=== PATIENT | male | born 1970 | race Caucasian/White ===

== ENCOUNTER 2021-04-05 12:28 | Outpatient (CLI) | payer BC, SELFPAY ==
--- NOTE | ~2021-04-05 | XR_ITS ---
EXAMINATION: XR barium swallow modified DATE: 04/05/2021 13:34 INDICATION: Dysphagia, unspecified TECHNIQUE: Modified barium esophagram was performed by myself to administered fluoroscopy, in conjun ction with speech pathologist who administered barium in varying consistencies as per speech patholog ist documentation. This was recorded on tape. A single fluoroscopic spot image was recorded. The DAP for this procedure was 1.5 Gycm2. Fluoroscopy exposure time was 1.297 minutes. FINDINGS: Oral stage: Adequate function. Pharyngeal phase: Adequate function. Laryngeal penetration: None. Aspiration: None. Laryngeal sensitivity: Present. IMPRESSION: Normal modified esophagram. Please refer to speech pathologist findings and specific feed ing recommendations. Reviewed, dictated and finalized at location A. IMPRESSION: Normal modified esophagram. Please refer to speech pathologist find ings and specific feeding recommendations.
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
== END 2021-04-05 12:29 | disposition home or self-care (01) ==
PROVIDERS: Visit Provider Internal Medicine Gastroenterology
DX: R13.10 Dysphagia, unspecified (principal)
CPT/HCPCS: 92611

== ENCOUNTER 2021-05-24 01:05 | Day surgery (SDC) | payer BC, SELFPAY ==
[2021-05-24] MEDS: LACTATED RINGERS 1,000 ML 150 ML IV CONT (08:55)
[2021-05-24 08:56] VITALS: BP 143/94; PULSE 70; RESP 18; TEMP 36.3; O2SAT 100; BMI 30.5
--- NOTE | 2021-05-24 09:11 | P.PNAN_ITS ---
Anes - Initial Pre Proc Eval Procedure: Operation Date: 05/24/21 09:30 Proposed Procedures p Esophagogastroduodenoscopy - Govind Vivar MD Date/Time: 05/24/21 09:11 Surgeon: Govind Vivar MD Pre Op Diagnosis: dysphagia Patient Data Age: 51 Gender: M Height: 1.91 m Weight: 110.9 kg Last Vital Signs Temp 36.3 C L 05/24/21 08:56 Pulse 70 05/24/21 08:56 Resp 18 05/24/21 08:56 BP 143/94 H 05/24/21 08:56 Pulse Ox 100 05/24/21 08:56 Allergies Allergy/AdvReac Type Severity Reaction Status Date / Time No Known Allergies Allergy Unknown Unverified 05/24/21 08:45 Home Medications Medication Instructions Recorded Confirmed Type fexofenadine 60 mg tablet 60 mg PO Q12H 03/15/21 05/04/21 History omeprazole 20 mg PO DAILY 05/04/21 05/04/21 History Patient hx anesthesia problems: none Family hx anesthesia problems: none [facility] Past Medical History Medical History (Updated 05/24/21 @ 09:19 by Gonzalez Giles MD) GERD (gastroesophageal reflux disease) Obesity Surgical History Surgical History (Updated 05/24/21 @ 09:19 by Gonzalez Giles MD) H/O wrist surgery Family History Family History Other Diabetes mellitus Social History Social History Smoking status: Never smoker Alcohol intake: current Drinks per week: 4 Substance use: never Living arrangements: with family Gender identity (if verbalized by the patient): Male Spiritual care concerns: No Anes - Eval Final PreProcedure Day of Procedure 05/24/21 09:11 Patient weight: obese Heart: regular rate and rhythm Lungs: clear to auscultation Airway: Mallampati scale class II Neurological: alert and oriented Last oral intake: >/= 8 hours ASA classification: II Emergent: no Anesthetic plan: proceed Anesthesia type and monitoring: general GIVS and standard monitoring Informed Consent: The patient's anesthetic plan and its attendant risks and benefits were discussed with the patient/family/POA. Questions were solicited and answers provided to the satisfaction of the patient/family/POA.
--- NOTE | 2021-05-24 09:19 | WPDHPUPDATE1 ---
History and Physical Update Update Date/Time: 05/24/21 09:19 History and Physical has been reviewed, including an updated exam of the patient. There are NO changes in the patient's condition. Risks, benefits, and alternatives have been discussed and questions answered. Patient agrees to proceed with procedure.
[2021-05-24] MEDS: BENZOCAINE (*SP) 60 ML SPRAY CAN (HURRICAINE) 1 SPRAY MUCOUS MEM (09:31)
[2021-05-24 09:43] VITALS: BP 127/82; PULSE 86; RESP 22; O2SAT 96
[2021-05-24 09:53] VITALS: BP 143/94; PULSE 80; RESP 18; O2SAT 98
[2021-05-24 10:03] VITALS: BP 138/92; PULSE 72; RESP 20; O2SAT 99
--- NOTE | 2021-06-04 12:49 | P.HPUP_ITS ---
History and Physical Update Update Date/Time: 06/04/21 12:49 Patient presents for GI endoscopy on 05/25/2021. C omplaining of difficulty swallowing. There has been no change in patient's history of physical went previously seen in the office. On 03/29/2021 History and Physical has been reviewed, including an updated exam of the patient. There are NO changes in the patient's condition. Risks, benefits, and alternatives have been discussed and questions answered. Patient agrees to proceed with procedure.
--- NOTE | 2021-06-04 12:50 | WPDGICN ---
Assessment and Plan Assessment and plan (1) Dysphagia: Code(s): R13.10 - Dysphagia, unspecified Status: Acute Assessment and Plan: Patient presents complaining of difficulty swallowing. Plan is for an EGD to evaluate more thoroughly. This will be performed 05/25/2021. GI Consult Note Consult date/time: 06/04/21 12:50 HPI: Jac Hillman is a 51 year old male presents on 05/25/2021 for difficulty swallowing. He has had trouble swallowing meats. He denies abdominal pain. No specific heartburn. He presents for EGD today. He has had no weight loss. Review of Systems Review of Systems: All systems reviewed & are unremarkable except as noted in HPI and below PMFSH Past Medical History Medical History (Updated 05/24/21 @ 13:45 by Faith Roman [facility]) GERD (gastroesophageal reflux disease) Obesity Surgical History Surgical History (Updated 05/24/21 @ 09:19 by Gonzalez Giles MD) H/O wrist surgery Family History Family History Other Diabetes mellitus Social History Social History Smoking status: Never smoker Alcohol intake: current Drinks per week: 4 Substance use: never Gender identity (if verbalized by the patient): Male Spiritual care concerns: No Meds Home Medications and Allergies Home Medications Medication Instructions Recorded Confirmed Type fexofenadine 60 mg tablet 60 mg PO Q12H 03/15/21 05/04/21 History omeprazole 20 mg PO DAILY 05/04/21 05/04/21 History Allergies Allergy/AdvReac Type Severity Reaction Status Date / Time No Known Allergies Allergy Unknown Unverified 05/24/21 08:45 Exam Narrative: Exam Narrative: Physical exam on day of presentation reveals patient be alert vital signs stable. HEENT exam reveals no icterus. Lungs are clear. Heart without murmur. Abdomen bowel sounds present soft nontender with no organomegaly. Digital rectal exam deferred.
== END 2021-05-24 10:10 | disposition home or self-care (01) ==
PROVIDERS: Visit Provider Internal Medicine Gastroenterology
PROC: 0DJ08ZZ Inspection of Upper Intestinal Tract, Via Natural or Artificial Opening Endoscopic (ICD-10-PCS; CPT 43235; principal; 2021-05-24 09:30)
DX: R13.19 Other dysphagia (principal); K21.9 Gastro-esophageal reflux disease without esophagitis; E66.9 Obesity, unspecified; Z68.30 Body mass index [BMI] 30.0-30.9, adult
CPT/HCPCS: 43450; J2704; J7120